=== PATIENT | female | born 1935 | race Caucasian/White ===

== ENCOUNTER 2018-10-15 22:02 | Emergency (ER) | payer MEDICARE, OTHER ==
--- NOTE | 2018-10-15 23:26 | EDM.PDOC ---
ED HPI GENERAL MEDICAL PROBLEM - General Chief Complaint: Head Injury Stated Complaint: FELL HIT BACK OF HEAD NEEDS STITCHES Time Seen by Provider: 10/15/18 23:02 Source of Information: Reports: Patient, Family (2 sons), RN Notes Reviewed History Limitations: Reports: No Limitations - History of Present Illness INITIAL COMMENTS - FREE TEXT/NARRATIVE: The patient states that she was at a are around 20:30 this evening, when she felt lightheaded for about 10 minutes, then suffered a syncopal episode, falling off of her barstool, striking the back of her head on the barstool, then on the floor. One of the patient's sons, who is present in the ED, was present at the time, and states that she appeared to be unconscious for up to 1 minute. EMS was called, but the patient refused transport. Here in the ED, the patient denies having a headache or neck pain. She has 2 lacerations to her posterior right scalp. The patient did not volunteer it, but her son states that she was short of breath after arriving to the bar. The patient states that it was cold out, and that she had to hurry to get into the bar, and that she was no more dyspneic than she ordinarily would be for that degree of exertion. She denies having experienced chest pain or palpitations prior to feeling lightheaded. No prior similar symptoms. The patient's PCP is Dr. Oneal Lowery. Head Pain Score (Numeric/FACES): 1 - Related Data Allergies Allergy/AdvReac Type Severity Reaction Status Date / Time No Known Allergies Allergy Verified 10/15/18 22:19 Home Meds: Home Meds Aspirin [Adult Low Dose Aspirin EC] 81 mg PO DAILY 10/15/18 [History] Cholecalciferol (Vitamin D3) [Vitamin D] 1 tab PO DAILY 10/15/18 [History] Vit A/C/E AC/Znox/Cupric Oxide [Eye Vitamin-Minerals Tablet] 1 tab PO DAILY [History] atorvaSTATin Calcium [Lipitor] 20 mg PO DAILY 10/15/18 [History] Past Medical History HEENT History: Reports: Hard of Hearing, Impaired Vision Cardiovascular History: Reports: High Cholesterol Endocrine/Metabolic History: Reports: Obesity/BMI 30+, Vitamin D Deficiency - Infectious Disease History Infectious Disease History: Reports: Chicken Pox, Measles, Mumps, Pertussis ( Whooping Cough), Scarlet Fever - Past Surgical History HEENT Surgical History: Reports: Oral Surgery (wisdom teeth extraction), Tonsillectomy GI Surgical History: Reports: Appendectomy Musculoskeletal Surgical History: Reports: Shoulder Surgery Social & Family History - Family History Family Medical History: Noncontributory - Tobacco Use Smoking Status *Q: Never Smoker - Caffeine Use Caffeine Use: Reports: Tea - Alcohol Use Alcohol Use History: Yes Alcohol Use Frequency: Socially - Recreational Drug Use Recreational Drug Use: No - Living Situation & Occupation Living situation: Reports: , Alone Occupation: Retired ED ROS GENERAL - Review of Systems Review Of Systems: ROS reveals no pertinent complaints other than HPI. - Physical Exam Exam: See Below Exam Limited By: No Limitations General Appearance: Alert, WD/WN, No Apparent Distress Eye Exam: Bilateral Eye: EOMI, Normal Inspection, PERRL Ears: Normal External Exam, Hearing Loss Nose: Normal Inspection Throat/Mouth: Normal Inspection, Normal Lips, Normal Voice, No Airway Compromise Head Exam: Normocephalic, Scalp Lacerations (3.5 cm linear laceration to the posterior right scalp, and a 2.5 cm linear laceration to the inferior right posterior scalp). No: Scalp Swelling Neck: Normal Inspection, Supple, Non-Tender, Full Range of Motion Respiratory/Chest: No Respiratory Distress, Lungs Clear, Normal Breath Sounds, No Accessory Muscle Use Cardiovascular: Normal Peripheral Pulses, Regular Rate, Rhythm, No Gallop, No JVD, No Murmur, No Rub GI/Abdominal: Normal Bowel Sounds, Soft, Non-Tender, No Organomegaly, No Distention, No Abnormal Bruit, No Mass, Other (Obese) (Female) Exam: Deferred Rectal (Female) Exam: Deferred Neuro Exam (Abbreviated): Alert, Oriented, CN II-XII Intact, Normal Cognition, No Motor/Sensory Deficits Back Exam: Normal Inspection, Full Range of Motion, NT Extremities: Normal Inspection, Normal Range of Motion, Normal Capillary Refill Psychiatric: Normal Affect Skin Exam: Warm, Dry, Intact, Normal Color, No Rash EKG INTERPRETATION EKG Date: 10/15/18 Time: 23:34 Rhythm: NSR Rate (Beats/Min): 70 [place]: Normal (Borderline LAD) P-Wave: Present QRS: Normal ST-T: Normal QT: Normal Comparison: NA - No Prior EKG Course - Vital Signs Last Recorded V/S: Last Vital Signs Temp 36.7 C 10/15/18 22:15 Pulse 64 10/15/18 22:15 Resp 16 10/15/18 22:15 BP 156/68 H 10/15/18 22:15 Pulse Ox 94 L 10/15/18 22:15 Orthostatic Blood Pressure [ 165/79 Standing] Orthostatic Blood Pressure [ 170/78 Sitting] Orthostatic Blood Pressure [ 150/71 Supine] - Orders/Labs/Meds Orders: Active Orders 24 hr Category Date Time Status EKG Documentation Completion [RC] STAT Care 10/15/18 23:24 Active Orthostatic Vital Signs [RC] STAT Care 10/15/18 23:24 Active Ang Chest [CT] Stat Exams 10/16/18 00:25 Taken Sodium Chloride 0.9% [Normal Saline] 1,000 ml Med 10/16/18 00:30 Active IV ASDIRECTED Sodium Chloride 0.9% [Normal Saline] 100 ml Med 10/16/18 01:00 Active IV ASDIRECTED Medication Orders Sodium Chloride (Normal Saline) 1,000 mls @ 150 mls/hr IV ASDIRECTED ZOYA Last Admin: 10/16/18 00:45 Dose: 150 mls/hr Sodium Chloride (Normal Saline) 100 mls @ 4 mls/sec IV ASDIRECTED ZOYA Last Admin: 10/16/18 01:04 Dose: 4 mls/sec Labs: Laboratory Tests 10/15/18 10/15/18 10/15/18 Range/Units 23:35 23:35 23:35 WBC 5.41 (3.98-10.04) K/mm3 RBC 4.97 (3.98-5.22) M/mm3 Hgb 14.6 (11.2-15.7) gm/L Hct 43.3 (34.1-44.9) % MCV 87.1 (79.4-94.8) fl MCH 29.4 (25.6-32.2) pg MCHC 33.7 (32.2-35.5) g/dl RDW Std Deviation 39.2 (36.4-46.3) fL Plt Count 116 L (182-369) K/mm3 MPV 10.1 (9.4-12.3) fl Neutrophils % (Manual) 77 H (40-60) % Band Neutrophils % 16 H (0-10) % Lymphocytes % (Manual) 5 L (20-40) % Atypical Lymphs % 0 % Monocytes % (Manual) 2 (2-10) % Eosinophils % (Manual) 0 L (0.7-5.8) % Basophils % (Manual) 0 L (0.1-1.2) Toxic Granulation 2+ moderate Platelet Estimate Decreased Plt Morphology Comment Normal RBC Morph Comment Normal D-Dimer, Quantitative 1.47 H (0.19-0.50) mg/L Sodium 141 (136-145) mEq/L Potassium 4.4 (3.5-5.1) mEq/L Chloride 103 (98-107) mEq/L Carbon Dioxide 28 (21-32) mEq/L Anion Gap 14.4 (5-15) BUN 18 (7-18) mg/dL Creatinine 0.8 (0.55-1.02) mg/dL Est Cr Clr Drug Dosing 40.91 mL/min Estimated GFR (MDRD) > 60 (>60) mL/min BUN/Creatinine Ratio 22.5 H (14-18) Glucose 130 H (83-115) mg/dL Calcium 9.3 (8.5-10.1) mg/dL Total Bilirubin 1.0 (0.2-1.0) mg/dL AST 26 (15-37) U/L ALT 44 (14-59) U/L Alkaline Phosphatase 97 (46-116) U/L Troponin I < 0.017 (0.00-0.056) ng/mL Total Protein 7.1 (6.4-8.2) g/dl Albumin 3.9 (3.4-5.0) g/dl Globulin 3.2 gm/dL Albumin/Globulin Ratio 1.2 (1-2) Meds: Medications Generic Name Dose Route Start Last Admin Trade Name Freq PRN Reason Stop Dose Admin Sodium Chloride 1,000 mls @ 150 mls/hr 10/16/18 00:30 10/16/18 00:45 Normal Saline IV 150 mls/hr ASDIRECTED ZOYA Administration Sodium Chloride 100 mls @ 4 mls/sec 10/16/18 01:00 10/16/18 01:04 Normal Saline IV 4 mls/sec ASDIRECTED ZOYA Administration Discontinued Medications Generic Name Dose Route Start Last Admin Trade Name Freq PRN Reason Stop Dose Admin Iopamidol 100 ml 10/16/18 00:56 10/16/18 01:04 Isovue-370 (76%) IVPUSH 10/16/18 00:57 100 ml ONETIME ONE Administration Iopamidol 50 ml 10/16/18 00:56 10/16/18 01:04 Isovue-370 (76%) IVPUSH 10/16/18 00:57 50 ml ONETIME ONE Administration - Re-Assessments/Exams Free Text/Narrative Re-Assessment/Exam: 10/15/18 23:25 The 3.5 cm laceration on the patient's posterior scalp received 7 helio, and the 2.5 cm laceration received 4 helio. I have ordered some blood work, an ECG , and orthostatics, to evaluate why the patient might have passed out. As the patient denies having a headache or neck pain, and her neurologic examination is completely normal, an emergency CT scan of her head and/or cervical spine is not indicated presently. 10/15/18 23:45 The patient is not orthostatic. 10/16/18 00:26 The patient's D-dimer has returned elevated at 1.47. Her renal function is normal, as is her CBC, troponin, and ECG. I recommended a CT angiogram of the chest to rule out a PE, and the patient has agreed. 10/16/18 02:11 CT angiogram of the chest is read by [facility] as: 1. No evidence of acute intrathoracic injury. 2. Heterogeneous, enlarged thyroid gland. 3. Small hiatal hernia. 4. Mild splenomegaly. 5. Benign hepatic and renal cysts. 6. Minimal nonobstructive nephrolithiasis. 7. Incidental, non-urgent findings as above. 10/16/18 02:14 Test results discussed with the patient and her 2 sons. Today's workup was unremarkable. She is not orthostatic, there is no evidence of a PE, nor any other intrathoracic abnormality, such as pneumonia. The cause of her syncope is unknown. I am recommending that she stay adequately hydrated for the next few days. I gave her instructions with respect to the care of her helio, and I'm recommending that she have them removed in about one week. She may take over-the -counter Tylenol or ibuprofen as needed for discomfort. Departure - Departure Time of Disposition: 02:15 Disposition: Home, Self-Care 01 Condition: Good Clinical Impression: Scalp laceration, Syncope - Discharge Information *PRESCRIPTION DRUG MONITORING PROGRAM REVIEWED*: Not Applicable *COPY OF PRESCRIPTION DRUG MONITORING REPORT IN PATIENT CLAUDINE: Not Applicable Referrals: Oneal Lowery Jr, MD [Primary Care Provider] - Forms: ED Department Discharge Additional Instructions: You were seen in the emergency room after passing out, falling, and cutting the back of your head. Workup in the ER included blood work, positional blood pressure checks, a CT angiogram of your chest, and an ECG. Your entire workup was unremarkable, and does not explain the cause of your passing out. Stay adequately hydrated over the next few days. A total of 11 helio were placed across 2 lacerations on the back of your scalp. Keep your scalp clean with ordinary shampoo and water. Do not put product in your hair. You should expect a small amount of bleeding from the wounds over the next 2 or 3 nights. Take [id number] Tylenol or ibuprofen as needed for discomfort. The helio should be ready for removal by 10/24/2018. These can be removed at the walk-in clinic, by a nurse at your doctor's office, or in the ER. If any other problems, please do not hesitate to return to the ER. - My Orders Last 24 Hours: My Active Orders 10/15/18 23:24 EKG Documentation Completion [RC] STAT Orthostatic Vital Signs [RC] STAT 10/16/18 00:25 Ang Chest [CT] Stat 10/16/18 00:30 Sodium Chloride 0.9% [Normal Saline] 1,000 ml IV ASDIRECTED 10/16/18 01:00 Sodium Chloride 0.9% [Normal Saline] 100 ml IV ASDIRECTED - Assessment/Plan Last 24 Hours: My Active Orders 10/15/18 23:24 EKG Documentation Completion [RC] STAT Orthostatic Vital Signs [RC] STAT 10/16/18 00:25 Ang Chest [CT] Stat 10/16/18 00:30 Sodium Chloride 0.9% [Normal Saline] 1,000 ml IV ASDIRECTED 10/16/18 01:00 Sodium Chloride 0.9% [Normal Saline] 100 ml IV ASDIRECTED
[2018-10-16] MEDS ORDERED: Sodium Chloride 0.9% 1,000 ML IV SCH (00:30)
[2018-10-16] MEDS ORDERED: Iopamidol 755 MG/ML 50 ML Bottle IVPUSH ONE (00:56)
[2018-10-16] MEDS ORDERED: Iopamidol 755 Mg/ML 100 ML Bottle IVPUSH ONE (00:56)
[2018-10-16] MEDS ORDERED: Sodium Chloride 0.9% 100 ML IV SCH (01:00)
--- NOTE | 2018-10-16 16:07 | CT ---
CT chest Technique: Multiple axial sections through the chest were obtained. Intravenous contrast was utilized. Study has been performed as a pulmonary angiogram protocol. Findings: Pulmonary arteries are well-opacified. No filling defects are seen to indicate pulmonary embolism. 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 Atherosclerotic calcification is noted within the thoracic aorta. No aneurysm is seen. Mild coronary artery calcification is noted. No pericardial thickening is seen. Small hiatal hernia is present. Multiple cysts are seen within the right and left lobes of the liver. Largest liver cyst measures approximately 3.4 cm. Cysts also noted within both kidneys. Cyst within the right kidney measures approximately 5.1 cm and largest cyst within the left kidney measures 5.2 cm. Calcification noted within the right kidney most likely parenchymal in location. Spleen is generous in size but felt not to be enlarged. Lungs show minimal apical scarring as well as small linear scar within the left base. No acute parenchymal change is seen within either lung. No pleural effusions are seen. Bone window settings were reviewed which show mild degenerative endplate spurring within the spine. Impression: 1. No findings of pulmonary embolism. 2. Coronary artery calcification. 3. Other findings as noted above which are felt to be incidental. Diagnostic code #3 I agree with preliminary report from [facility], finalized on 10/16/18, 3:08 AM Central Time
== END 2018-10-16 02:33 | disposition home or self-care (01) ==
LOC: JD.ED 22:02
DX: R55 Syncope and collapse (principal); S01.01XA Laceration without foreign body of scalp, initial encounter; E66.9 Obesity, unspecified; Z79.82 Long term (current) use of aspirin; Z90.89 Acquired absence of other organs; Z90.49 Acquired absence of other specified parts of digestive tract; W07.XXXA Fall from chair, initial encounter
CPT/HCPCS: 12002; 36415; 71275; 80053; 84484; 85007; 85027; 85379; 93005; 96365; 96366; 99285; J7030; J7040; Q9967; 93010; 99283

== ENCOUNTER 2021-08-20 20:45 | Emergency (ER) | payer MEDICARE, OTHER ==
[2021-08-20] MEDS ORDERED: Lactated Ringers 1,000 ML IV ONE (22:36)
--- NOTE | 2021-08-20 22:37 | EDM.PDOC ---
ED HPI GENERAL MEDICAL PROBLEM - General Chief Complaint: Gastrointestinal Problem Stated Complaint: DIARRHEA Time Seen by Provider: 08/20/21 22:37 Source of Information: Reports: Patient History Limitations: Reports: No Limitations - History of Present Illness INITIAL COMMENTS - FREE TEXT/NARRATIVE: Patient is an 86-year-old female with a past medical history of hypertension p resenting with a chief complaint of diarrhea. Patient reports approximately 7 to 8 days of the symptoms. Patient reports 5-6 episodes of diarrhea per day. She reports associated fatigue and lethargy. Denies any associated abdominal pain. She does report loss of appetite. She states the diarrhea is caused her to lose 7 to 8 pounds during this period of time. She denies any antibiotic use, hospitalizations and is also not been vaccinated against COVID-19. She does have some sick contact exposure with Covid. Only prior abdominal surgery was appendectomy done as a child. - Related Data Allergies Allergy/AdvReac Type Severity Reaction Status Date / Time No Known Allergies Allergy Verified 08/20/21 22:01 Home Meds: Home Meds Aspirin [Adult Low Dose Aspirin EC] 81 mg PO DAILY 10/15/18 [History] atorvaSTATin Calcium [Lipitor] 20 mg PO DAILY 10/15/18 [History] Ondansetron [Zofran ODT] 4 mg PO Q6H PRN #12 tab.dis 08/21/21 [Rx] Ondansetron [Zofran ODT] 4 mg PO Q6H PRN #12 tab.dis 08/21/21 [Rx] Past Medical History HEENT History: Reports: Hard of Hearing, Impaired Vision Other HEENT History: glasses for reading Cardiovascular History: Reports: High Cholesterol, Hypertension Respiratory History: Reports: None Gastrointestinal History: Reports: None Genitourinary History: Reports: None 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: Neurological History: Reports: None Psychiatric History: Reports: None Endocrine/Metabolic History: Reports: Obesity/BMI 30+, Vitamin D Deficiency Hematologic History: Reports: None Immunologic History: Reports: None Oncologic (Cancer) History: Reports: None Dermatologic History: Reports: None - Infectious Disease History Infectious Disease History: Reports: Chicken Pox, Measles, Mumps, Pertussis (Whooping Cough), Scarlet Fever - Past Surgical History Head Surgeries/Procedures: Reports: None HEENT Surgical History: Reports: Oral Surgery, Tonsillectomy GI Surgical History: Reports: Appendectomy Musculoskeletal Surgical History: Reports: Shoulder Surgery Other Musculoskeletal Surgeries/Procedures:: 1975 Social & Family History - Family History Family Medical History: No Pertinent Family History - Tobacco Use Tobacco Use Status *Q: Never Tobacco User Second Hand Smoke Exposure: Yes - Caffeine Use Caffeine Use: Reports: None - Recreational Drug Use Recreational Drug Use: No - Living Situation & Occupation Living situation: Reports: , Alone Occupation: Retired ED ROS GENERAL - Review of Systems Review Of Systems: See Below Free Text/Narrative/Comment: In addition to that documented in the HPI above, the additional ROS was obtained: Constitutional: Denies fevers or chills Eyes: Denies vision changes ENMT: Denies sore throat CV: Denies chest pain Resp: Denies SOB GI: Per HPI : Denies painful urination MSK: Denies recent trauma Skin: Denies new rashes Neuro: Denies new numbness or tingling or weakness Endocrine: Denies unexpected weight loss Heme: Denies bleeding disorders ED EXAM, GI/ABD - Physical Exam Exam: See Below Text/Narrative:: I have reviewed the triage vital signs Const: Well nourished, well developed, appears stated age Eyes: Pupils Equal and reactive to light bilaterally, no conjunctival injection HENT: No signs of trauma or swelling, Neck supple without meningismus CV: Regular Rate Rhythm, Warm, well-perfused extremities RESP: Unlabored respiratory effort GI: soft, non-tender, non-distended, no masses MSK: No gross deformities appreciated Skin: Warm, dry. No rashes Neuro: Alert, branch sales manager II-XII grossly intact. Sensation and motor function of extremities grossly intact. Psych: Appropriate mood and affect. Course - Vital Signs Last Recorded V/S: Last Vital Signs Temp 36.6 C 08/20/21 21:45 Pulse 63 08/20/21 21:45 Resp 32 H 08/20/21 21:45 BP 189/63 H 08/20/21 21:45 Pulse Ox 92 L 08/20/21 21:45 - Orders/Labs/Meds Labs: Laboratory Tests 08/20/21 08/20/21 08/20/21 Range/Units 22:55 22:55 23:03 WBC 2.73 L (3.98-10.04) K/mm3 RBC 4.62 (3.98-5.22) M/mm3 Hgb 13.7 (11.2-15.7) gm/dl Hct 40.9 (34.1-44.9) % MCV 88.5 (79.4-94.8) fl MCH 29.7 (25.6-32.2) pg MCHC 33.5 (32.2-35.5) g/dl RDW Std Deviation 39.9 (36.4-46.3) fL Plt Count 99 L (182-369) K/mm3 MPV 11.5 (9.4-12.3) fl Neut % (Auto) 69.1 (34.0-71.1) % Lymph % (Auto) 15.4 L (19.3-51.7) % [place] % (Auto) 13.6 H (4.7-12.5) % Eos % (Auto) 1.1 (0.7-5.8) Baso % (Auto) 0.4 (0.1-1.2) % Neut # (Auto) 1.89 (1.56-6.13) K/mm3 Lymph # (Auto) 0.42 L (1.18-3.74) K/mm3 [place] # (Auto) 0.37 H (0.24-0.36) K/mm3 Eos # (Auto) 0.03 L (0.04-0.36) K/mm3 Baso # (Auto) 0.01 (0.01-0.08) K/mm3 Manual Slide Review Abnormal smear Sodium 136 (136-145) mEq/L Potassium 3.8 (3.5-5.1) mEq/L Chloride 99 (98-107) mEq/L Carbon Dioxide 31 (21-32) mEq/L Anion Gap 9.8 (5-15) BUN 12 (7-18) mg/dL Creatinine 0.7 (0.55-1.02) mg/dL Est Cr Clr Drug Dosing 44.34 mL/min Estimated GFR (MDRD) > 60 (>60) mL/min BUN/Creatinine Ratio 17.1 (14-18) Glucose 102 H (70-99) mg/dL Calcium 8.4 L (8.5-10.1) mg/dL Total Bilirubin 1.2 H (0.2-1.0) mg/dL AST 46 H (15-37) U/L ALT 58 (14-59) U/L Alkaline Phosphatase 84 (46-116) U/L C-Reactive Protein 4.0 H* (<1.0) mg/dL Total Protein 6.8 (6.4-8.2) g/dl Albumin 3.3 L (3.4-5.0) g/dl Globulin 3.5 gm/dL Albumin/Globulin Ratio 0.9 L (1-2) Urine Color Yellow (Yellow) Urine Appearance Clear (Clear) Urine pH 6.5 (5.0-8.0) Ur Specific [place] 1.025 (1.005-1.030) Urine Protein 2+ H (Negative) Urine Glucose (UA) Negative (Negative) Urine Ketones 2+ H (Negative) Urine Occult Blood Trace-intact H (Negative) Urine Nitrite Negative (Negative) Urine Bilirubin 1+ H (Negative) Urine Urobilinogen 0.2 (0.2-1.0) Ur Leukocyte Esterase Negative (Negative) Urine RBC 0-5 (0-5) /hpf Urine WBC 0-5 (0-5) /hpf Ur Squamous Epith Cells 10-20 H (0-5) /hpf Urine Bacteria Few (FEW) /hpf Urine Mucus Many H (FEW) /hpf SARS-CoV-2 RNA (TAIWO) (NEGATIVE) 08/20/21 Range/Units 23:03 WBC (3.98-10.04) K/mm3 RBC (3.98-5.22) M/mm3 Hgb (11.2-15.7) gm/dl Hct (34.1-44.9) % MCV (79.4-94.8) fl MCH (25.6-32.2) pg MCHC (32.2-35.5) g/dl RDW Std Deviation (36.4-46.3) fL Plt Count (182-369) K/mm3 MPV (9.4-12.3) fl Neut % (Auto) (34.0-71.1) % Lymph % (Auto) (19.3-51.7) % [place] % (Auto) (4.7-12.5) % Eos % (Auto) (0.7-5.8) Baso % (Auto) (0.1-1.2) % Neut # (Auto) (1.56-6.13) K/mm3 Lymph # (Auto) (1.18-3.74) K/mm3 [place] # (Auto) (0.24-0.36) K/mm3 Eos # (Auto) (0.04-0.36) K/mm3 Baso # (Auto) (0.01-0.08) K/mm3 Manual Slide Review Sodium (136-145) mEq/L Potassium (3.5-5.1) mEq/L Chloride (98-107) mEq/L Carbon Dioxide (21-32) mEq/L Anion Gap (5-15) BUN (7-18) mg/dL Creatinine (0.55-1.02) mg/dL Est Cr Clr Drug Dosing mL/min Estimated GFR (MDRD) (>60) mL/min BUN/Creatinine Ratio (14-18) Glucose (70-99) mg/dL Calcium (8.5-10.1) mg/dL Total Bilirubin (0.2-1.0) mg/dL AST (15-37) U/L ALT (14-59) U/L Alkaline Phosphatase (46-116) U/L C-Reactive Protein (<1.0) mg/dL Total Protein (6.4-8.2) g/dl Albumin (3.4-5.0) g/dl Globulin gm/dL Albumin/Globulin Ratio (1-2) Urine Color (Yellow) Urine Appearance (Clear) Urine pH (5.0-8.0) Ur Specific [place] (1.005-1.030) Urine Protein (Negative) Urine Glucose (UA) (Negative) Urine Ketones (Negative) Urine Occult Blood (Negative) Urine Nitrite (Negative) Urine Bilirubin (Negative) Urine Urobilinogen (0.2-1.0) Ur Leukocyte Esterase (Negative) Urine RBC (0-5) /hpf Urine WBC (0-5) /hpf Ur Squamous Epith Cells (0-5) /hpf Urine Bacteria (FEW) /hpf Urine Mucus (FEW) /hpf SARS-CoV-2 RNA (TAIWO) Positive H (NEGATIVE) Meds: Medications Discontinued Medications Generic Name Dose Route Start Last Admin Trade Name Freq PRN Reason Stop Dose Admin Lactated Ringer's 1,000 mls @ 1,000 mls/hr 08/20/21 22:36 08/20/21 22:57 Ringers, Lactated IV 08/20/21 23:35 1,000 mls/hr .BOLUS ONE Administration Departure - Departure Time of Disposition: 00:08 Disposition: Home, Self-Care 01 Clinical Impression: Diarrhea due to COVID-19 - Discharge Information Prescriptions: Ondansetron [Zofran ODT] 4 mg PO Q6H PRN #12 tab.dis PRN Reason: Nausea Ondansetron [Zofran ODT] 4 mg PO Q6H PRN #12 tab.dis PRN Reason: Nausea Instructions: COVID-19 Frequently Asked Questions Referrals: Donna Aguirre MD [Primary Care Provider] - Forms: ED Department Discharge Additional Instructions: Please monitor breathing at home. Return to the emergency room immediately for severe shortness of breath or if your oxygen levels dropped below 90%. You should receive a call from the [facility] clinic to schedule your antibiotic infusion. Continue to stay under quarantine to avoid infecting others. Sepsis Event Note (ED) - Evaluation Sepsis Screening Result: No Definite Risk - Focused Exam Vital Signs: Vital Signs Temp Pulse Resp BP Pulse Ox 08/20/21 21:45 36.6 C 63 32 H 189/63 H 92 L - Assessment/Plan Assessment:: Patient is an 86-year-old female with diarrhea. Vital signs demonstrate hypertension which is a new diagnosis for this patient. However, no hypoxia or respiratory distress. Patient's abdominal exam was benign. Her ER course was unremarkable. She did feel better after administration of IV fluids in the ER. Differential diagnosis considered for this patient include diverticulitis, COVID-19, colitis, dehydration. Laboratory studies demonstrate findings consistent with COVID-19. Her COVID-19 test did ultimately come back positive. She does not meet criteria for admission at this time. However, we did arrange for the antibodies to be infused on an outpatient basis. I spoke with patient to provide information about antibiotic infusion. I offered them the patient and caregiver EUA back she to read and review state of the drug has been approved for emergency use authorization and has not been fully FDA reviewed or approved. The patient meets the EUA requirements I discussed the other potential treatment options that are currently not FDA approved to treat COVID-19. Offered opportunity to ask questions and all questions were answered Patient voiced understanding and agreed to proceed with treatment for COVID-19
== END 2021-08-21 00:20 | disposition home or self-care (01) ==
LOC: JD.ED 20:45
DX: R19.7 Diarrhea, unspecified (principal); U07.1 COVID-19; E78.00 Pure hypercholesterolemia, unspecified; I10 Essential (primary) hypertension; E66.9 Obesity, unspecified; Z68.32 Body mass index [BMI] 32.0-32.9, adult; Z79.82 Long term (current) use of aspirin; Z79.899 Other long term (current) drug therapy; Z20.822 Contact with and (suspected) exposure to COVID-19
CPT/HCPCS: 36415; 80053; 81001; 85025; 86140; 99284; J7120; U0002